=== PATIENT | female | born 1990 | race Caucasian/White ===

== ENCOUNTER 2023-11-04 14:12 | Emergency (ER) | payer BC ==
[2023-11-04] MEDS ORDERED: Sodium Chloride 0.9% 2.5 ML Syringe FLUSH PRN (14:31)
[2023-11-04] MEDS ORDERED: Sodium Chloride 0.9% 10 ML Syringe FLUSH PRN (14:31)
[2023-11-04 14:40] LABS: HEMATOCRIT 30.6 % (37.0-47.0); HEMOGLOBIN 10.6 g/dL (12.0-16.0); MEAN CORPUSCULAR HEMOGLOBIN 29.2 pg (28.0-32.0); MEAN CORPUSCULAR HGB CONC 34.6 g/dL (32.0-36.0); MEAN CORPUSCULAR VOLUME 84.3 fL (83.0-99.0); MEAN PLATELET VOLUME 11.7 fL (9.4-12.3); PLATELET COUNT,PLT 116 K/uL (150-400); RED BLOOD CELL COUNT 3.63 M/uL (4.10-5.30); WHITE BLOOD CELL COUNT,WBC 5.53 K/uL (3.9-11.3)
[2023-11-04] MEDS: Acetaminophen 500 MG Tab PO STA (14:54)
[2023-11-04] MEDS: cefTRIAXone 1 GM in Sodium Chloride 0.9% 50 ML IV STA ×2 (14:54→20:24)
[2023-11-04] MEDS: Ketorolac 30 MG/ML SDV IVPUSH STA (14:54)
[2023-11-04 14:55] LABS: LYMPHOCYTES ABSOLUTE MAN 3.54 K/uL (1.00-4.80); LYMPHOCYTES PERCENT MAN 64 % (24-44); MONOCYTES ABSOLUTE MAN 0.66 K/uL (0.00-0.80); MONOCYTES PERCENT MAN 12 % (0-8); SEG NEUTROPHILS ABSOLUTE MAN 1.33 K/uL (1.80-7.70); SEG NEUTROPHILS PERCENT MAN 24 % (41-71)
[2023-11-04] MEDS: Sodium Chloride 0.9% 1,000 ML IV STA ×4 (14:57→17:15)
[2023-11-04 15:03] LABS: A/G RATIO 1.1 (0.9-1.6); ALBUMIN 4.1 g/dL (3.4-5.0); BILIRUBIN TOTAL 2.3 mg/dL (0.2-1.0); CALCIUM 8.5 mg/dL (8.5-10.1); CREATININE 1.7 mg/dL (0.6-1.0); EST CRCL DRUG DOSING (CG) 43.15 mL/min; POTASSIUM,K 3.5 mmol/L (3.5-5.1); PROTEIN TOTAL,TP 7.7 g/dL (6.4-8.2)
[2023-11-04 15:29] LABS: CORONAVIRUS COVID-19 NAA NEGATIVE (NEGATIVE); INFLUENZA A NAA NEGATIVE (NEGATIVE); INFLUENZA B NAA NEGATIVE (NEGATIVE)
[2023-11-04 15:52] LABS: LACTIC ACID 1.8 mmol/L (0.4-2.0)
[2023-11-04 16:21] LABS: BILIRUBIN,URINE NEGATIVE (NEGATIVE); COLOR,URINE YELLOW; GLUCOSE,URINE NEGATIVE (NEGATIVE); KETONES,URINE TRACE mg/dL (NEGATIVE); LEUKOCYTE ESTERASE,URINE NEGATIVE (NEGATIVE); NITRITE,URINE NEGATIVE (NEGATIVE); OCCULT BLOOD,URINE NEGATIVE (NEGATIVE); PH,URINE 5.5 (5.0-8.0); PROTEIN,URINE NEGATIVE (NEGATIVE); UROBILINOGEN,URINE 0.2 EU/dL (<2.0)
[2023-11-04 16:27] LABS: APPEARANCE,URINE HAZY
[2023-11-04] MEDS: Iopamidol 755 MG/ML 500 ML Multipack Bottle IVPUSH STA (16:29)
[2023-11-04 17:13] LABS: AMPHETAMINES SCREEN, URINE NEGATIVE (CUTOFF=500); BARBITURATE SCREEN,URINE NEGATIVE (CUTOFF=200); BENZODIAZEPINES SCREEN,URINE NEGATIVE (CUTOFF=150); BUPRENORPHINE SCREEN,URINE NEGATIVE (CUTOFF=10); METHADONE SCREEN, URINE NEGATIVE (CUTOFF=200); METHAMPHETAMINES SCREEN, URINE NEGATIVE (CUTOFF=500); OXYCODONE SCREEN,URINE NEGATIVE (CUT0FF=100); PCP SCREEN,URINE NEGATIVE (CUTOFF=25); THC SCREEN,URINE 20 NG/ML NEGATIVE (CUTOFF=50)
[2023-11-04 19:53] LABS: TSH ULTRASENSITIVE 2.88 uIU/mL (0.36-3.74)
[2023-11-04] MEDS: VANCOmycin 1.5 GM/300 ML 1.5 GM in Premix Bag 1 BAG IV ONE (20:57)
[2023-11-04] MEDS: Norepinephrine Bit/D5W Premix 250 ML IV STA (21:23)
[2023-11-04] MEDS: Ondansetron 4 MG/2 ML SDV IVPUSH STA (21:44)
[2023-11-04] MEDS: Acetaminophen 500 MG Tab PO ONE (22:45)
== END 2023-11-04 23:22 ==
LOC: MW.ED 14:12
DX: I21.4 Non-ST elevation (NSTEMI) myocardial infarction (principal); N17.9 Acute kidney failure, unspecified; R50.9 Fever, unspecified; Z75.8 Other problems related to medical facilities and other health care; Z79.899 Other long term (current) drug therapy
CPT/HCPCS: 0240U; 36415; 71275; 74177; 76705; 80053; 80305; 81003; 83605; 84443; 84484; 84703; 85025; 85652; 86140; 87040; 87086; 93005; 96372; 96374; 99285; A9270; J0696; J1885; J2405; J3372; J3490; J7030; Q9967; 93010; 99291

== ENCOUNTER 2024-12-27 03:03 | Emergency (ER) | payer BC | END 2024-12-27 04:00 | disposition home or self-care (01) | LOC: MW.ED 03:03 | DX: Z71.1 Person with feared health complaint in whom no diagnosis is made (principal); Z79.899 Other long term (current) drug therapy | CPT/HCPCS: 99283 ==